=== PATIENT | male | born 1955 | race Caucasian/White ===

== ENCOUNTER 2019-12-11 12:52 | Emergency (ER) | payer OTHER ==
[~2019-12-11] VITALS: Ht 175.2 cm; Wt 63.5 kg
[~2019-12-11 12:52] MED LIST: BACTRIM DS 8001 TA1 PO; BACTRIM DS 8001 TAB PO; IBU-6600 MG PO; KEFLEX500 MG PO; SEPTRA DS 800 M1 TAB PO; TRAMADOL HCL50 MG PO; ULTRAM50 MG PO; VIBRAMYCIN100 MG PO; VICODIN 5/500 505 MG PO; VICODIN ES 7501 TAB PO
[2019-12-11 13:06] VITALS: BP 132/79
[2019-12-11 14:36] LABS: BILIRUBIN NEGATIVE (NEGATIVE); CLARITY CLEAR (CLEAR); COLOR YELLOW (YELLOW); GLUCOSE NEGATIVE (NEGATIVE); KETONE NEGATIVE (NEGATIVE)
[2019-12-11 14:37] LABS: BLOOD NEGATIVE (NEGATIVE); NITRITE POSITIVE (NEGATIVE); PH 5.5 (5.0-9.0); UROBILINOGEN 0.2 E.U./dl (0.2-1.0)
[2019-12-11 14:45] LABS: LEUKO ESTERASE TRACE (NEGATIVE)
[2019-12-11 14:46] LABS: BACTERIA 3+
[2019-12-11 15:01] LABS: BASO # 0.1 10*3/uL (0.0-0.1); BASO % 0.7 % (0.0-1.0); EOS # 0.4 10*3/uL (0.0-0.4); EOS % 5.3 % (1.0-4.0); HEMATOCRIT 42.9 % (42.0-52.0); HEMOGLOBIN 13.5 g/dl (14.0-18.0); LYMPH # 1.7 10*3/uL (1.3-4.4); LYMPH % 24.4 % (27.0-41.0); MEAN CELL VOLUME 94.3 fl (80.0-94.0); MEAN CORPUSCULAR HGB 29.7 pg (27.0-31.0); MEAN CORPUSCULAR HGB CONC 31.5 g/dl (33.0-37.0); MEAN PLATELET VOLUME 9.9 fl (9.6-12.3); MONO # 0.8 10*3/uL (0.1-1.0); MONO % 12.4 % (3.0-9.0); NEUT # 3.9 10*3/uL (2.3-7.9); NEUT % 56.8 % (47.0-73.0); PLATELET COUNT AUTOMATED 317 10*3/uL (130-400); RED BLOOD COUNT 4.55 10*6/uL (4.50-5.90); RED CELL DISTRI WIDTH 14.5 % (0-14.5); WHITE BLOOD COUNT 6.8 10*3/uL (4.8-10.8)
[2019-12-11 15:15] LABS: ALBUMIN 3.4 gm/dl (3.1-4.5); ALKALINE PHOSPHATASE 81 U/L (45-117); BUN 18 mg/dl (7-24); CHLORIDE 110 mmol/L (98-107); CREATININE 0.96 mg/dL (0.70-1.30); LIPASE 16 U/L (73-393); SGOT/AST 13 IU/L (3-35); SGPT/ALT 28 U/L (12-78); SODIUM 143 mmol/L (136-145); TOTAL PROTEIN 6.4 gm/dL (6.4-8.2)
[2019-12-11] MEDS ORDERED: IBUPROFEN600 MG PO (18:29)
== END 2019-12-11 18:38 | disposition home or self-care (01) ==
LOC: ED 12:52
PROVIDERS: Physician Assistant
DX: S76.212A Strain of adductor muscle, fascia and tendon of left thigh, initial encounter (principal); F17.200 Nicotine dependence, unspecified, uncomplicated; Z79.899 Other long term (current) drug therapy; X50.0XXA Overexertion from strenuous movement or load, initial encounter; Y93.89 Activity, other specified; Y92.89 Other specified places as the place of occurrence of the external cause; Y99.8 Other external cause status

== ENCOUNTER → 2022-09-26 | Outpatient (CLI) | payer OTHER, MEDICAID ==
[~2022-09-26] MED LIST changes: +IBUPROFEN600 MG PO
[2022-09-26 11:00] LABS: HEMATOCRIT 42.2 % (42.0-52.0); MEAN CELL VOLUME 91.7 fl (80.0-94.0); MEAN CORPUSCULAR HGB 28.7 pg (27.0-31.0); MEAN CORPUSCULAR HGB CONC 31.3 g/dl (33.0-37.0); MEAN PLATELET VOLUME 9.7 fl (9.6-12.3); RED BLOOD COUNT 4.6 10*6/uL (4.50-5.90); RED CELL DISTRI WIDTH 14.6 % (0-14.5); WHITE BLOOD COUNT 11.4 10*3/uL (4.8-10.8)
[2022-09-26 11:20] LABS: ALKALINE PHOSPHATASE 77 U/L (46-116); BUN 17 mg/dl (9-23); CHLORIDE 104 mmol/L (98-107); CHOLESTEROL 131 mg/dL (<200); FREE T4 1.04 ng/dl (0.89-1.76); LDL CHOLESTEROL 57 mg/dL (9-159); POTASSIUM 4.7 mmol/L (3.4-5.1); SGPT/ALT 30 U/L (10-49); THYROID STIM HORMONE (HS) 1.433 uIU/ml (0.550-4.780); TOTAL PROTEIN 6.8 gm/dL (6.0-8.0); TRIGLYCERIDES 60 mg/dl (<150)
[2022-09-26 13:31] LABS: VITAMIN D, 25-HYDROXY 31.4 ng/mL (30-100)
== END | disposition home or self-care (01) ==
LOC: LAB 10:24
PROVIDERS: ATTEND Family Medicine
DX: E78.00 Pure hypercholesterolemia, unspecified (principal); K21.9 Gastro-esophageal reflux disease without esophagitis; E55.9 Vitamin D deficiency, unspecified; R53.83 Other fatigue; R63.4 Abnormal weight loss; F17.200 Nicotine dependence, unspecified, uncomplicated

== ENCOUNTER → 2023-08-16 | Outpatient (CLI) | payer OTHER, MEDICAID ==
[2023-08-16 12:56] LABS: HEMATOCRIT 38.5 % (42.0-52.0); MEAN CELL VOLUME 91.7 fl (80.0-94.0); MEAN CORPUSCULAR HGB 29.5 pg (27.0-31.0); MEAN CORPUSCULAR HGB CONC 32.2 g/dl (33.0-37.0); MEAN PLATELET VOLUME 9.3 fl (9.6-12.3); RED BLOOD COUNT 4.2 10*6/uL (4.50-5.90); RED CELL DISTRI WIDTH 14.4 % (0-14.5); WHITE BLOOD COUNT 8.2 10*3/uL (4.8-10.8)
[2023-08-16 13:31] LABS: ALKALINE PHOSPHATASE 88 U/L (46-116); BUN 19 mg/dl (9-23); CHLORIDE 108 mmol/L (98-107); CHOLESTEROL 127 mg/dL (<200); LDL CHOLESTEROL 70 mg/dL (9-159); POTASSIUM 4.6 mmol/L (3.4-5.1); SGPT/ALT 21 U/L (5-49); TOTAL PROTEIN 6.6 gm/dL (6.0-8.0); TRIGLYCERIDES 62 mg/dl (<150)
== END | disposition home or self-care (01) ==
LOC: LAB 12:36
PROVIDERS: ATTEND Family Medicine
DX: E78.00 Pure hypercholesterolemia, unspecified (principal); M79.10 Myalgia, unspecified site; M19.90 Unspecified osteoarthritis, unspecified site; M25.50 Pain in unspecified joint

== ENCOUNTER → 2023-08-25 | Outpatient (CLI) | payer OTHER, MEDICAID | END | disposition home or self-care (01) | LOC: RAD 13:46 | PROVIDERS: ATTEND Family Medicine | DX: M85.861 Other specified disorders of bone density and structure, right lower leg (principal); M25.562 Pain in left knee ==

== ENCOUNTER → 2024-01-24 | Outpatient (CLI) | payer OTHER, MEDICAID | END | disposition home or self-care (01) | LOC: RAD 10:37 | PROVIDERS: ATTEND Family Medicine | DX: M48.061 Spinal stenosis, lumbar region without neurogenic claudication (principal); M25.562 Pain in left knee; M25.552 Pain in left hip ==

== ENCOUNTER 2024-12-24 10:00 | Emergency (ER) | payer MEDICARE ==
[~2024-12-24] VITALS: Wt 62.1 kg
[2024-12-24 10:27] VITALS: BP 149/98
[2024-12-24] MEDS ORDERED: Amoxicillin/Clavulanate Pota 875 MG TAB PO ONE (11:10)
[2024-12-24] MEDS ORDERED: traMADol Hydrochloride 50 MG TAB PO ONE (11:10)
[2024-12-24] MEDS ORDERED: AMOX-CLAV 875-1 EACH PO (11:14)
== END 2024-12-24 11:31 | disposition home or self-care (01) ==
LOC: ED 10:00
DX: S51.852A Open bite of left forearm, initial encounter (principal); Z79.899 Other long term (current) drug therapy; Z98.890 Other specified postprocedural states; W54.0XXA Bitten by dog, initial encounter; Y93.89 Activity, other specified; Y92.89 Other specified places as the place of occurrence of the external cause; Y99.8 Other external cause status

== ENCOUNTER 2025-01-04 19:08 | Emergency (ER) | payer MEDICARE ==
[~2025-01-04] VITALS: Ht 175.2 cm; Wt 57.6 kg
[~2025-01-04 19:08] MED LIST changes: +AMOX-CLAV 875-1 EACH PO
[2025-01-04 19:21] VITALS: BP 142/80
[2025-01-04] MEDS ORDERED: Acetaminophen/Hydrocodone 5 MG/325 MG TABLET PO ONE (19:55)
[2025-01-04] MEDS ORDERED: DERMABOND 1 EA APPL T ONE (20:02)
== END 2025-01-04 19:58 | disposition home or self-care (01) ==
LOC: ED 19:08
DX: S61.411A Laceration without foreign body of right hand, initial encounter (principal); Z98.890 Other specified postprocedural states; W18.09XA Striking against other object with subsequent fall, initial encounter; Y93.89 Activity, other specified; Y92.89 Other specified places as the place of occurrence of the external cause; Y99.8 Other external cause status